=== PATIENT | female | born 2000 | race Hispanic/Latino ===

== ENCOUNTER 2018-06-19 18:36 | Outpatient (AMB) | payer OTHER, SELFPAY ==
--- NOTE | 2018-06-19 18:54 | UCVISIT ---
Intake Ht./Wt. Decline/Exclusions Patient Declined Height and Weight this visit: No PT Meets exclusion criteria: No Vital Signs 06/19/18 18:55 Height Method Measured Weight Measurement Method Standing Scale BMI 24.4 Temp 98.5 F Temp Source Temporal Artery Scan Pulse 73 Pulse Source Monitor Respiration 20 BP 124/57 L Blood Pressure Source Automatic Cuff Blood Pressure Location Left Upper Arm Position Sitting Pulse Oximetry (%) 99 Oxygen Delivery Method Room Air Intake Zika Travel: No Been in contact w/anyone who has been Dx w/Zika Virus: No Been in contact w/anyone sick during travel outside country: No Patient >or equal to 18 years BMI outside of range 18.5-24.9: Yes Visit Reasons: UC Sore throat Primary Care Provider: Miller Abel Is patient in pain?: No Triage Triage Allergy / Med Rec Allergies No Known Allergies Allergy (Verified 06/19/18 19:19) Band Placement: Patient Identification HARIKA: [id number] Arrival Mode of Arrival: Private Vehicle Method of Arrival: Ambulatory Accompanied By: Self PCP or OBGYN visit in last 3 months: No Language Preferred Language: Slovenian [employer] Delivery Specialist Required: No Female History Now: No ( CONTROL) : No Social History Alcohol / Drugs Hx Alcohol Use: No Hx Substance Use: No Safety Do You Feel Safe at Home: Yes Authorities Contacted: N/A Marie Fall Scale Special Populations Patient Comatose, Paralyzed or Immobile: No Patient Under the Age of 44 Years Old: No Assessment History of falling; immediate or within 3 months: No Secondary diagnosis: No Ambulatory aid: None IV Infusion: No Gait/Transferring: Normal/bedrest/immobile Mental Status: Oriented to own ability Score Score: 0 Risk Level/Action Risk Level: Low Risk Action: Good Basic Nursing Care Fall Star Level 1 Fall Star Level 1: Yes Patient Education Topic Education Topics: Discharge Instructions and Plan of Care Teaching Recipient: Patient Readiness, Motivation to Learn: Active Methods: Verbal instruction and Hand Out Educ Materials Suggested by INFO Button/Rx Monograph Given: No Response: Verbalize Understanding [employer] Delivery Specialist Required: No Population Health PMH Hx Congestive Heart Failure: No Hx Diabetes Mellitus Type 1: No Hx Diabetes Mellitus Type 2: No Hx Renal Disease: No Hx Chronic Obstructive Pulmonary Disease (COPD): No Past Medical History Reviewed and agree with Nursing documentation.: Yes Past Medical History History Provided By: Patient Cardiac Medical History Hx Congestive Heart Failure: No Endocrine Medical History Hx Diabetes Mellitus Type 1: No Hx Diabetes Mellitus Type 2: No Genitourinary Medical History Hx Renal Disease: No Respiratory Medical History Hx COPD: No HPI Throat Infection Patient is a 18-year-old female presents to clinic with complaint of cough for the past week. Patient reports that his cough is nonproductive, and he feels that his has drainage to the back of his throat which makes his cough worse at night Cough is mild to moderate, non-painful, no [id number] medications attempted Also, sore throat, localized, x 2 days with fevers nightly, tactile, mild, no home remedies. The patient denies using humidifier nightly. He has not tried an antihistamine, and denies fever chills, denies unusual travel. Vaccinations up-to-date, flu vaccine included. was dx with flu and strep throat yesterday. Denies smoking, denies history of TB denies spitting up any blood, denies recent unintended weight loss denies night sweats denies starting any new antihypertensive medicine denies history of GERD or reflux Review of Systems (UC) Review of Systems All systems reviewed & no additional complaints except as documented ENT Ears. Nose, Mouth, and Throat: Reports as per HPI Resp Respiratory: Reports as per HPI Exam (UC) Limitations: no limitations General Appearance: alert, in no apparent distress, comfortable, cooperative, healthy appearing, well developed and well groomed Head exam: atraumatic, normocephalic and normal inspection Eye exam: Reports normal appearance and Reports EOMI ENT exam: Present normal exam, normal external ear exam, TM's normal bilaterally and mucous membranes moist; Absent normal oropharynx ( Cobble stoning noted posterior pharynx, no erythema no edema, positive post nasal drip, no tonsillar exudates) Neck Exam: Present normal inspection, non-tender, trachea midline, supple and full ROM; Absent lymphadenopathy, meningismus and tenderness SPO2%: 99% SPO2 type: Room Air SPO2% Normal/Abnormal: Normal Respiratory exam: Present normal lung sounds bilaterally, normal respiratory effort, able to speak in complete sentences and clear to ascultation bilaterally Cardiovascular exam: Present regular rate and regular rhythm Skin exam: Present warm, dry, intact and normal color Office Procedures Level of Care Nursing/Assessment/Reassessment Patient Status: Established Patient Nursing Assessment/Reassessment: Triage Asessment, Initial Vital Signs and RN General Assessments Coordination of Care: DC Instructions Simple Established Patient Charge Established Patient Point Assignment: 40 Established Patient Point Assignment: EP Level 2 (40-75) Procedures: Pulse Ox reading: Yes SQ Im Injection: Yes UC penicillin G benzathine 1,200,000 unit/2 mL intramuscular syringe Medication Given Medication Given: Yes Documented Dose Given: 1.2 Route: IM Office Meds penicillin G benzathine Performing Provider: Mario Thorne PA-C Administered by: JONO LEIVA on 06/19/18 19:15 Dose Route Admin Location Lot Number Expiration Date [employer] 1.2 mmu IM Assessment and Plan Assessment & Plan (1) Strep throat exposure: (2) Exposure to the flu: (3) Sore throat: Plan Details Assessment: The patient has respiratory symptoms and physical exam suggestive of flu and strep exposure. They appear well here in the ED without signs of respiratory distress or hypoxia and are tolerating oral intake. Chest x-ray is not indicated due to low suspicion of pneumonia. I do not suspect serious bacterial infection, sepsis, meningitis, or UTI. Return precautions were given, including increased work of breathing, cyanosis, apnea, chest pain, persistent fevers, vomiting, lethargy, poor oral intake or other concerns for worsening illness. Patient and/or Caregiver verbalized understanding of the plan, felt comfortable with discharge, and all questions were answered. Other Medications: New: oseltamivir (Tamiflu) 75 mg PO QDAY 10 days 10 caps 0RF ipratropium bromide administer into each nostril; wait 30 seconds between sprays 2 sprays Intranasal BID 30 mL 0RF loratadine (Allergy Relief (loratadine)) 10 mg PO QDAY 30 tabs 3RF allergy symptoms Discontinued: penicillin G benzathine Discontinued Reason: Office Medication has been Documented as given 1.2 mmu (2 mL) IM ONCE 2 mL 0RF Other Orders: Orders: UC penicillin G benzathine 1,200,000 unit/2 mL intramuscular syringe 06/19/18 Additional Comments: Follow-up with your doctor in 3-5 days for recheck and evaluation. Take any/all medications as directed. If worse, not improving, or any concerns go immediately to the emergency department. Primary Care Provider: Miller Abel Instructions: Sore Throats Self Care Additional Information PA/FAM Supervising Physician: Malik Dang DC Evaluation Discharge Information Seen, Treated and Released by Provider: No Left Prior to Receiving Discharge Instructions: No Transfer to Outside Facility: No Vital Signs Vitals Signs N/A: Yes Pain Pain Medication / Other Intervention Provided: No Medication Medication Given this Visit: Yes Reaction to Medication: No Discharge Information Condition on Discharge: Stable Mode of Discharge: Ambulatory Discharge Transportation: Private Vehicle Instructions [employer] Delivery Specialist Required: No Discharge Instructions Given To: Patient Was Follow up Care Ordered: Yes Verbalizes Understanding of Discharge Instructions: Yes [facility] information card provided?: Yes Patient plan follow up w/PCP for [employer] Services: No URI/Sore Throat HPI Related Data Allergies Allergy/AdvReac Type Severity Reaction Status Date / Time No Known Allergies Allergy Verified 06/19/18 19:19
[2018-06-19 18:55] VITALS: BP 124/57; PULSE 73; RESP 20; TEMP 36.9; O2SAT 99; BMI 24.4
== END 2018-06-19 19:28 | disposition home or self-care (01) ==
PROVIDERS: PCP Family Medicine; Referring Provider Family Medicine; Visit Provider Physician Assistant
DX: I10 Essential (primary) hypertension (principal)